=== PATIENT | female | born 1995 | race Caucasian/White ===

== ENCOUNTER 2017-02-14 14:47 | Inpatient (IN) | payer BC, MEDICAID ==
[~2017-02-14] VITALS: Ht 160 cm; Wt 94.8 kg
--- NOTE | ~2017-02-14 | HP ---
PATIENT'S NAME: STEVE JOSEPH [facility] AGE: 21 Y [address] ROOM: [address] [address] LOCATION: BS ADMIT DATE: 02/14/2017 History & Physical DISCHARGE DATE: FAMILY PHYSICIAN: PHYSICIAN, NO ATTENDING PHYSICIAN: Chloé Sandhu DATE OF SERVICE: HISTORY OF PRESENT ILLNESS: This is a 21-year-old, 2, para 0-0-1-0, who is with twins. She has seen Dr. Dawson for this . Her due date is 04/09/2017, set by her last menstrual period and ultrasound. She has had slightly elevated blood pressures on and off for the past 3 weeks. She presents for her routine nonstress test today at 32 weeks and 2 days. Her blood pressure is 150/100 and then 160/110. She had 3+ proteinuria today which is different for her. Her weight is up 13 pounds in the last week. She is sent to Labor and Delivery where her platelet count was found to be 118,000. It was over 200,000 in December. Her creatinine is 0.8 and her urine protein creatinine ratio is 3.6. With all of these factors, cluster headaches, and her twins, decision is made to move towards delivery. The patient understands the risks of prematurity with the babies. She did receive Celestone when she got to Labor and Delivery. I did a group B strep test in the office. Transabdominal ultrasound today revealed the twins to be vertex-vertex with good fluid and good movement x2. One baby is 1800 g and twin B is 1775 g. Nonstress test was started in the office and what I saw was reassuring, but I took her off the monitor since I was sending her to Labor and Delivery anyway. Her cervix is closed. She declines trial of labor secondary to the breech fetus. CURRENT MEDICATIONS: 1. vitamins. 2. Protonix. ALLERGIES: NONE KNOWN. PREVIOUS SURGERIES: None. HOSPITALIZATIONS: It looks like maybe she was hospitalized for meningitis for 3 months. PHYSICAL EXAMINATION: EXTREMITIES: She has edema. ABDOMEN: Gravid. LUNGS: Clear. PATIENT'S NAME: STEVE JOSEPH [facility] AGE: 21 Y [address] ROOM: [address] [address] LOCATION: [facility] ADMIT DATE: 02/14/2017 History & Physical DISCHARGE DATE: FAMILY PHYSICIAN: PHYSICIAN, NO ATTENDING PHYSICIAN: Chloé Sandhu HEART: Regular rate and rhythm. IMPRESSION: 1. Twin intrauterine at 32 weeks and 2 days. 2. Severe preeclampsia. 3. Thrombocytopenia. 4. Malpresentation of twin B. PLAN: We will move towards section. She understands surgical risks to include, but not limited to bleeding, transfusion, infection, injury to other organs, and need for additional surgery. Appropriate consents are signed and witnessed. Then, again we discussed prematurity and what to expect with the twins. MD GEE JAMES/modl /[id number] D: [id number] T: [id number] HISTORY & PHYSICAL
--- NOTE | ~2017-02-14 | OR ---
PATIENT'S NAME: STEVE JOSEPH [facility] AGE: 21 Y [address] ROOM: [place] [id number] LOCATION: [facility] ADMIT DATE: 02/14/2017 OR/Procedure Report DISCHARGE DATE: FAMILY PHYSICIAN: PHYSICIAN, NO ATTENDING PHYSICIAN: Chloé Sandhu SURGEON: Chloé Sandhu MD AIR CONDITIONING SHEET METAL INSTALLER: Dulce Caceres MD. DATE OF PROCEDURE: 02/14/2017 PREOPERATIVE DIAGNOSES: 1. Intrauterine with twins at 32 weeks and 2 days. 2. Severe preeclampsia. 3. Malpresentation of the second twin. POSTOPERATIVE DIAGNOSES: 1. Intrauterine with twins at 32 weeks and 2 days. 2. Severe preeclampsia. 3. Malpresentation of the second twin. PROCEDURE PERFORMED: Primary low transverse section. ANESTHESIA: Spinal. BLOOD LOSS: 1000 mL. COMPLICATIONS: None. PROCEDURE IN DETAIL: The patient was taken to the Operating Room, and placed under spinal anesthetic. She was prepped and draped in the usual sterile standard fashion. A Pfannenstiel skin incision was made with a knife and carried down to the level of the fascia. The fascia was nicked in the midline. The incision was carried out laterally. The fascia was sharply and bluntly dissected from the underlying rectus muscles. The peritoneum was opened sharply and incised and stretched. A bladder blade was placed. The bladder reflection was taken down sharply and placed behind the bladder blade. A low transverse uterine incision was made with a knife, and carried out laterally with the hide cooking operator's fingers. The vertex was grasped. The twin A was delivered over the uterine incision. There was a loose double nuchal cord. Baby boy was delivered. His mouth and nares were suctioned, and he was handed off to the warmer. He weighed 4 pounds 13 ounces. Twin B was breech. The bag of water was ruptured, and the feet were delivered over the uterine incision. Baby was delivered to the level of the shoulders, and the arms were swept anteriorly. Baby girl's head was delivered, she lets out a spontaneous cry. Her cord was doubly clamped and cut, and she was handed off to the warmer. She weighed 4 pounds 5 ounces. The cord blood samples are collected PATIENT'S NAME: STEVE JOSEPH [facility] AGE: 21 Y [address] ROOM: [place] [address] LOCATION: [facility] ADMIT DATE: 02/14/2017 OR/Procedure Report DISCHARGE DATE: FAMILY PHYSICIAN: PHYSICIANTRE ATTENDING PHYSICIAN: Chloé Sandhu on both cords. Placentas are delivered and sent to Pathology after they are tagged. WOUND CLOSURE: The uterine incision was closed in a running locking stitch of 0 chromic after the uterus was exteriorized. A second imbricating stitch was performed. The tubes and ovaries looked normal. The uterine cavity was normal. The uterus was replaced within the peritoneal cavity. The peritoneum was closed with 2-0 Vicryl. The 0 Vicryl was used to close the fascia. The 4- 0 Vicryl was used to close the skin. The patient tolerated the procedure well. She will remain on magnesium sulfate for 24 hours postoperatively. MD JOSEPH JAMESP/modl /[id number] d: 02/15/175 t: 02/22/17 0503, OPERATIVE SUMMARY
[2017-02-14 15:50] LABS: BASOPHIL % 0.1 %; EOSINOPHIL # 0.1 K/uL (0.0-0.5); EOSINOPHIL % 0.8 %; HEMATOCRIT 24.5 % (33.0-46.0); HEMOGLOBIN 8.5 g/dL (11.0-15.0); IMMATURE GRANULOCYTE # 0.1 K/uL (0.0-0.3); IMMATURE GRANULOCYTE % 0.9 %; LYMPHOCYTE # 1.7 K/uL (0.8-4.0); LYMPHOCYTE % 20.2 %; MCH 28.3 pg (27.0-34.0); MCHC 34.7 gm/dL (32.0-36.5); MCV 81.7 fl (83.0-98.0); MONOCYTE # 0.6 K/uL (0.0-1.0); MONOCYTE % 6.9 %; NEUTROPHIL % 71.1 %; NRBC % 0 /100WBC (0-0.00); PLATELET COUNT 118 K/uL (150-450); RDW-CV 13.1 % (11.9-14.6); WBC 8.5 K/uL (4.0-11.0)
[2017-02-14 15:58] LABS: INR - (THERAPEUTIC) 0.95 (0.92-1.07); PTT 26 SECONDS (25-32)
[2017-02-14 16:07] LABS: ALBUMIN 2.4 gm/dL (3.5-5.0); ALK PHOS 159 IU/L (33-138); ALT 12 IU/L (12-78); ANION GAP 13.2 (10.0-19.0); AST 22 IU/L (10-40); BLOOD UREA NITROGEN 8 mg/dL (6-24); CALCIUM 7.9 mg/dL (8.5-10.5); CHLORIDE 112 mMol/L (96-110); CO2 21 mMol/L (22-32); CREATININE 0.8 mg/dL (0.5-1.1); POTASSIUM 3.2 mMol/L (3.7-5.1); SODIUM 143 mMol/L (135-145); TOTAL BILIRUBIN 0.3 mg/dL (0.0-1.5); TOTAL PROTEIN 5.9 g/dL (6.0-8.4)
[2017-02-14] MEDS ORDERED: PRENATAL 1+1)(P1 TAB PO (16:49)
[2017-02-14] MEDS ORDERED: ACETAMINOPHEN325 MG PO (16:50)
[2017-02-14] MEDS ORDERED: UNISOM 25 MG25 MG PO (16:50)
[2017-02-14 18:24] LABS: BASOPHIL % 0.1 %; EOSINOPHIL % 0.2 %; HEMATOCRIT 25.6 % (33.0-46.0); HEMOGLOBIN 8.8 g/dL (11.0-15.0); IMMATURE GRANULOCYTE # 0.2 K/uL (0.0-0.3); IMMATURE GRANULOCYTE % 1.8 %; LYMPHOCYTE # 1.3 K/uL (0.8-4.0); LYMPHOCYTE % 10.8 %; MCH 27.9 pg (27.0-34.0); MCHC 34.4 gm/dL (32.0-36.5); MCV 81.3 fl (83.0-98.0); MONOCYTE # 0.3 K/uL (0.0-1.0); MONOCYTE % 2.6 %; MPV 10.1 fl (9.4-12.4); NEUTROPHIL # (ANC) 9.9 K/uL (1.8-7.8); NEUTROPHIL % 84.5 %; NRBC % 0.2 /100WBC (0-0.00); PLATELET COUNT 130 K/uL (150-450); RBC 3.15 M/uL (3.50-5.00); RDW-CV 13.2 % (11.9-14.6); WBC 11.7 K/uL (4.0-11.0)
[2017-02-14 21:54] LABS: PCO2 46 mmHg (35-45)
[2017-02-14 21:55] LABS: BICARBONATE 22.8 mmol/L (18.0-23.0); PO2 17 mmHg (80-90)
[2017-02-14 21:56] LABS: BICARBONATE 23.1 mmol/L (18.0-23.0); PCO2 46 mmHg (35-45); PO2 18 mmHg (80-90)
[2017-02-15 05:53] LABS: BASOPHIL % 0.1 %; IMMATURE GRANULOCYTE # 0.4 K/uL (0.0-0.3); IMMATURE GRANULOCYTE % 1.9 %; LYMPHOCYTE # 1.7 K/uL (0.8-4.0); LYMPHOCYTE % 9.5 %; MCV 81.3 fl (83.0-98.0); MONOCYTE # 0.5 K/uL (0.0-1.0); MONOCYTE % 2.6 %; MPV 10.5 fl (9.4-12.4); NEUTROPHIL # (ANC) 15.6 K/uL (1.8-7.8); NEUTROPHIL % 85.9 %; NRBC % 0.1 /100WBC (0-0.00); RDW-CV 13.2 % (11.9-14.6)
[2017-02-15 05:57] LABS: RBC 2.03 M/uL (3.50-5.00); WBC 18.2 K/uL (4.0-11.0)
[2017-02-15 05:58] LABS: HEMATOCRIT 16.5 % (33.0-46.0); HEMOGLOBIN 5.7 g/dL (11.0-15.0); MCH 28.1 pg (27.0-34.0); MCHC 34.5 gm/dL (32.0-36.5); PLATELET COUNT 164 K/uL (150-450)
[2017-02-15 14:28] LABS: BASOPHIL % 0.1 %; HEMATOCRIT 18.1 % (33.0-46.0); IMMATURE GRANULOCYTE # 0.4 K/uL (0.0-0.3); IMMATURE GRANULOCYTE % 1.7 %; LYMPHOCYTE % 8.7 %; MCH 28.3 pg (27.0-34.0); MCHC 34.3 gm/dL (32.0-36.5); MCV 82.6 fl (83.0-98.0); MONOCYTE # 1.1 K/uL (0.0-1.0); MONOCYTE % 4.7 %; MPV 10.6 fl (9.4-12.4); NEUTROPHIL # (ANC) 19.6 K/uL (1.8-7.8); NEUTROPHIL % 84.8 %; NRBC % 0 /100WBC (0-0.00); PLATELET COUNT 185 K/uL (150-450); RBC 2.19 M/uL (3.50-5.00); RDW-CV 13.9 % (11.9-14.6)
[2017-02-15 14:33] LABS: HEMOGLOBIN 6.2 g/dL (11.0-15.0); WBC 23.1 K/uL (4.0-11.0)
--- NOTE | 2017-02-16 06:08 | NUR ---
VSS. Last had a Motrin and Percocet at 0220. BP's stable this shift. Fundus firm and midline. Scant to small flow. Voiding in good amounts. Microfoam dressing taken off per nurse. Incision looks good with sutures and steri strips. Patient did not shower last night. Too fatigued and dizzy for shower. Patient gets easily fatigued and dizzy when sitting up to get out of bed and ambulates. Mag was turned off at 1913. DTR's WNL.
[2017-02-16 06:12] LABS: BASOPHIL % 0.1 %; EOSINOPHIL % 0.1 %; IMMATURE GRANULOCYTE # 0.6 K/uL (0.0-0.3); IMMATURE GRANULOCYTE % 2.8 %; LYMPHOCYTE # 1.9 K/uL (0.8-4.0); LYMPHOCYTE % 9.6 %; MCV 82.4 fl (83.0-98.0); MONOCYTE % 5.2 %; MPV 10.3 fl (9.4-12.4); NEUTROPHIL # (ANC) 15.9 K/uL (1.8-7.8); NEUTROPHIL % 82.2 %; NRBC % 0.2 /100WBC (0-0.00); PLATELET COUNT 158 K/uL (150-450)
[2017-02-16 06:13] LABS: HEMATOCRIT 17.3 % (33.0-46.0); MCH 28.6 pg (27.0-34.0); MCHC 34.7 gm/dL (32.0-36.5); WBC 19.3 K/uL (4.0-11.0)
--- NOTE | 2017-02-16 17:59 | NUR ---
02/16/17 1759 Given 2 units of blood. No cbc ordered. Started on Iron daily. Percocet @ 1303,Jamila @ 8351. Showered. Amb. in [facility]. Low abd. inc. intact w/ Suture /steri. Bp 130's-150's/60-70's.
[2017-02-17 07:55] LABS: BASOPHIL % 0.1 %; EOSINOPHIL # 0.1 K/uL (0.0-0.5); EOSINOPHIL % 0.6 %; HEMATOCRIT 22.1 % (33.0-46.0); HEMOGLOBIN 7.5 g/dL (11.0-15.0); IMMATURE GRANULOCYTE # 0.8 K/uL (0.0-0.3); IMMATURE GRANULOCYTE % 4.9 %; LYMPHOCYTE # 3.6 K/uL (0.8-4.0); LYMPHOCYTE % 20.8 %; MCH 28.7 pg (27.0-34.0); MCHC 33.9 gm/dL (32.0-36.5); MCV 84.7 fl (83.0-98.0); MONOCYTE # 1.3 K/uL (0.0-1.0); MONOCYTE % 7.6 %; MPV 9.5 fl (9.4-12.4); NEUTROPHIL # (ANC) 11.2 K/uL (1.8-7.8); NRBC % 0.5 /100WBC (0-0.00); PLATELET COUNT 176 K/uL (150-450); RBC 2.61 M/uL (3.50-5.00); RDW-CV 14.4 % (11.9-14.6)
--- NOTE | 2017-02-17 12:13 | NUR ---
Phone call from Carla on [facility] stating Dr. Sandhu would like patient to stay one more night due to issues with her magnesium and low hemaglobin. I contacted Elizabeth Jackson and Bharati Patton in the UR department and they informed met that patient is able to stay as inpatient until tomorrow morning February 18. I informed Carla of this and she will notify Dr. Sandhu. I will also reserve a room at the [facility] for patient starting tomorrow night.
--- NOTE | 2017-02-17 14:14 | NUR ---
D: Patient has a light pinkish rash (not welts or raised, and is Not itchy) over different parts of her body. Some on arms, some on face, etc. Patient said she wouldn't have known she had the rash if her family hadn't told her. I: I told patient it may caused from a number of things, one being anemic, sleep deprivation, a med or food she took. R: By the time I reassessed her pain in 1 hr, the rash had almost all faded. P: Reminded pt to be aware if any more symptoms start w/ rash i.e.~shortness of breast, etc.--Otherwise will continue routine /post-op c/s cares.
--- NOTE | 2017-02-17 18:49 | NUR ---
Last VS: T:98.5 P:97 R: 16 BP: 156/96 Pain ratin. Last pain med: Percocet Medicated at: 1720 Effective: Yes R Lung sounds: clear, L Lung sounds: clear Fundus: firm, midline Lochia: small, rubra Breasts: soft, Nipples: Incision closure: suture/steri strips Bowel sounds: active Passing flatus:yes Voiding well: yes Significant event: Ambulates to NICU prn. c/o being dizzy and lightheaded at times. Plans for discharge tomorrow. HGB today was 7.5. *.
--- NOTE | 2017-02-18 04:05 | NUR ---
vss, fundus firm, at umbilicus, small flow. pt up ad saima and independent with cares. walks to the nicu frequently. 1percocet and motrin given at 2300. 1 percocet given at 0340.
[2017-02-18] MEDS ORDERED: FEOSOL325 MG PO (08:58)
[2017-02-18] MEDS ORDERED: MOTRIN800 MG PO (08:59)
[2017-02-18] MEDS ORDERED: PROCARDIA XL30 MG PO (09:00)
[2017-02-18] MEDS ORDERED: PERCOCET 5-3251 EACH PO (09:00)
--- NOTE | 2017-02-18 14:15 | NUR ---
Patient is discharging today. Room at the [facility] has been reserved for the next two weeks under the ambulatory room and board.
== END 2017-02-18 14:45 | disposition disaster alternative care site (69) | DRG 765 ==
LOC: GOBS 14:47 → GOBM 14:47 → GOBS 18:14 → GOBM 18:14 → GOBS 18:15
PROVIDERS: ADMIT Obstetrics & Gynecology
PROC: 10907ZC Drainage of Amniotic Fluid, Therapeutic from Products of Conception, Via Natural or Artificial Opening (ICD-10-PCS; principal; 2017-02-14)
PROC: 10D00Z1 Extraction of Products of Conception, Low, Open Approach (ICD-10-PCS; principal; 2017-02-14)
PROC: 4A1HX4Z Monitoring of Products of Conception, Cardiac Electrical Activity, External Approach (ICD-10-PCS; principal; 2017-02-14)
DX: O14.13 Severe pre-eclampsia, third trimester (principal); O30.003 Twin pregnancy, unspecified number of placenta and unspecified number of amniotic sacs, third trimester; O32.8XX2 Maternal care for other malpresentation of fetus, fetus 2; O99.343 Other mental disorders complicating pregnancy, third trimester; F41.8 Other specified anxiety disorders; Z3A.32 32 weeks gestation of pregnancy; Z37.2 Twins, both liveborn
CPT/HCPCS: J0690; J0702; J1885; J2001; J2270; J3475; J7030; J7050; J7120; P9016